=== PATIENT | female | born 1965 | race Caucasian/White ===

== ENCOUNTER 2017-08-18 18:03 | Emergency (ER) | payer BC ==
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
[2017-08-18] MEDS ORDERED: Sodium Chloride 0.9% 1,000 ML IV SCH (18:30)
[2017-08-18] MEDS ORDERED: Metoclopramide 10 MG/2 ML SDV IVPUSH ONE (18:54)
[2017-08-18] MEDS ORDERED: Ketorolac 30 MG/ML SDV IVPUSH ONE (18:54)
[2017-08-18] MEDS ORDERED: Sodium Chloride 0.9% 10 ML Syringe FLUSH PRN (19:20)
[2017-08-18 20:34] VITALS: BP 152/80
== END 2017-08-18 20:30 | disposition home or self-care (01) ==
LOC: FB.ED 18:03
DX: G40.909 Epilepsy, unspecified, not intractable, without status epilepticus (principal); I10 Essential (primary) hypertension; Z88.2 Allergy status to sulfonamides; Z88.1 Allergy status to other antibiotic agents; Z88.8 Allergy status to other drugs, medicaments and biological substances; Z79.899 Other long term (current) drug therapy
CPT/HCPCS: 36415; 70450; 80053; 81001; 83735; 84443; 84484; 85025; 86140; 96361; 96374; 96375; 99284; J1885; J2765; J7040; J7050; J7030

== ENCOUNTER 2019-10-12 18:09 | Emergency (ER) | payer BC ==
[2019-10-12 18:43] VITALS: PULSE 80
--- NOTE | 2019-10-12 19:38 | EDM.PDOC ---
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, R handed walking down stairs 2d ago, she caught her L little finger on the wall, has had pain at MTP ibuprofen has helped left pinky finger Pain Score (Numeric/FACES): 3 - Related Data Allergies Allergy/AdvReac Type Severity Reaction Status Date / Time ampicillin Allergy Hives Verified 10/12/19 18:31 Sulfa (Sulfonamide Allergy Hives Verified 10/12/19 18:31 Antibiotics) sulfamethoxazole Allergy Hives Verified 10/12/19 18:31 [From Bactrim] trimethoprim [From Bactrim] Allergy Hives Verified 10/12/19 18:31 Home Meds: Home Meds Sertraline [Zoloft] 50 mg PO DAILY 06/05/16 [History] lamoTRIgine [Lamictal] 100 mg PO BID 06/05/16 [History] Losartan [Cozaar] 1 tab PO DAILY 08/18/17 [History] Past Medical History HEENT History: Reports: Impaired Vision 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: Reports: Hypertension 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 Neurological History: Reports: Seizure Psychiatric History: Reports: Anxiety - Infectious Disease History Infectious Disease History: Reports: None Social & Family History - Family History Family Medical History: Noncontributory - Tobacco Use Smoking Status *Q: Never Smoker Second Hand Smoke Exposure: No - Caffeine Use Caffeine Use: Reports: Coffee, Soda - Alcohol Use Days Per Week of Alcohol Use: 7 Number of Drinks Per Day: 2 Total Drinks Per Week: 14 - Recreational Drug Use Recreational Drug Use: No Review of Systems - Review of Systems Review Of Systems: See Below Constitutional: Reports: No Symptoms Eyes: Reports: No Symptoms Ears: Reports: No Symptoms Nose: Reports: No Symptoms Mouth/Throat: Reports: No Symptoms Respiratory: Reports: No Symptoms Cardiovascular: Reports: No Symptoms GI/Abdominal: Reports: No Symptoms Genitourinary: Reports: No Symptoms Musculoskeletal: Reports: Other (finger pain) Skin: Reports: No Symptoms Neurological: Reports: No Symptoms Psychiatric: Reports: No Symptoms ED EXAM, GENERAL - Physical Exam Exam: See Below Exam Limited By: No Limitations General Appearance: Alert, WD/WN, No Apparent Distress Extremities: Other (L little finger with minimal tender at MTP, no swell, no ecchymosis, no localized bony tender, good ROM, XR neg on prelim reading) Neurological: Alert, Oriented, CN II-XII Intact, Normal Cognition Psychiatric: Normal Affect, Normal Mood Course - Vital Signs Last Recorded V/S: Last Vital Signs Temp 36.8 C 10/12/19 18:18 Pulse 80 10/12/19 18:18 Resp 18 10/12/19 18:18 BP 146/95 H 10/12/19 18:18 Pulse Ox 99 10/12/19 18:18 - Orders/Labs/Meds Orders: Active Orders 24 hr Category Date Time Status Fingers Fifth Digit Lt F4 [CR] Stat Exams 10/12/19 18:37 Ordered - Re-Assessments/Exams Free Text/Narrative Re-Assessment/Exam: 10/12/19 19:39 pt preferred a dorsal splint, one was applied Departure - Departure Time of Disposition: 19:34 Disposition: Home, Self-Care 01 Condition: Good Clinical Impression: Metacarpophalangeal joint sprain Qualifiers: Encounter type: initial encounter Finger: little finger Laterality: left Qualified Code(s): S63.657A - Sprain of metacarpophalangeal joint of left little finger, initial encounter - Discharge Information *PRESCRIPTION DRUG MONITORING PROGRAM REVIEWED*: Not Applicable *COPY OF PRESCRIPTION DRUG MONITORING REPORT IN PATIENT [place]AV[place]: Not Applicable Referrals: Jimmy Mehta MD [Primary Care Provider] - Forms: ED Department Discharge Additional Instructions: For pain and inflammation and healing, take ibuprofen 200 mg 4 tabs and acetaminophen 500 mg 2 tabs 3 times a day for 1-2 weeks, longer if needed. For ibuprofen, may substitute Aleve with 2 tabs in morning, 1 tab in middle of day, and 2 tabs in evening. Use ice for 10 minutes several times a day as needed. Use dorsal splint when out of bed as needed. See your doctor in 2 weeks if you are not getting better. Sepsis Event Note - Evaluation Sepsis Screening Result: No Definite Risk - Focused Exam Vital Signs: Vital Signs Temp Pulse Resp BP Pulse Ox 10/12/19 18:18 36.8 C 80 18 146/95 H 99 Date Exam was Performed: 10/12/19 Time Exam was Performed: 19:38 - My Orders Last 24 Hours: My Active Orders 10/12/19 18:37 Fingers Fifth Digit Lt F4 [CR] Stat - Assessment/Plan Last 24 Hours: My Active Orders 10/12/19 18:37 Fingers Fifth Digit Lt F4 [CR] Stat
[2019-10-12 20:03] VITALS: BP 157/84
--- NOTE | 2019-10-15 11:00 | CR ---
INDICATION: Pain and swelling after bending back 2 days ago. LEFT 5TH FINGER: Three views of the left 5th finger revealed no evidence of a fracture, dislocation or other significant bone or joint abnormality. If occult fracture site is suspected clinically, reexamination in 10 to 14 days may be helpful. MTDD
== END 2019-10-12 19:50 | disposition home or self-care (01) ==
LOC: FB.ED 18:09
DX: S63.657A Sprain of metacarpophalangeal joint of left little finger, initial encounter (principal); I10 Essential (primary) hypertension; F41.9 Anxiety disorder, unspecified; Z88.1 Allergy status to other antibiotic agents; Z88.2 Allergy status to sulfonamides; Z79.899 Other long term (current) drug therapy; W22.01XA Walked into wall, initial encounter
CPT/HCPCS: 29125; 73140-F4; 99283-25

== ENCOUNTER 2022-08-26 07:11 | Day surgery (SDC) | payer BC, OTHER ==
[~2022-08-26 07:11] MED LIST: Lactated Ringers 1,000 ML IV SCH; Sodium Chloride 0.9% 10 ML Syringe FLUSH PRN
[2022-08-26] MEDS ORDERED: Propofol 200 MG/20 ML SDV IV ONE (07:12)
[2022-08-26] MEDS ORDERED: Simethicone Drops 40 MG/0.6 ML 30 ML Bottle PO ONE (09:10)
[2022-08-26 10:38] VITALS: BP 163/81; PULSE 68
== END 2022-08-26 10:23 | disposition home or self-care (01) ==
LOC: FB.SDS 07:11
PROVIDERS: ATTEND Surgery
DX: Z12.11 Encounter for screening for malignant neoplasm of colon (principal); D12.6 Benign neoplasm of colon, unspecified; F41.9 Anxiety disorder, unspecified; E66.9 Obesity, unspecified; I10 Essential (primary) hypertension; H81.10 Benign paroxysmal vertigo, unspecified ear; G43.109 Migraine with aura, not intractable, without status migrainosus; G47.30 Sleep apnea, unspecified; Z88.0 Allergy status to penicillin; Z68.35 Body mass index [BMI] 35.0-35.9, adult; Z79.899 Other long term (current) drug therapy; Z88.2 Allergy status to sulfonamides; Z98.890 Other specified postprocedural states
CPT/HCPCS: 00812; 88305; A9270-GY; J2704; J7120